=== PATIENT | female | born 1945 | race Caucasian/White ===

== ENCOUNTER 2021-12-22 17:27 | Inpatient (IN) ==
[2021-12-22 19:39] LABS: Bilirubin,Urine Negative (Negative); Blood,Urine Large (Negative); Clarity,Urine Turbid (Clear); Color,Urine Yellow (Yellow); Glucose,Urine (UA) Normal (Normal); Ketones,Urine 20 mg/dL (Negative); Leukocyte Esterase,Urine Moderate (Negative); Mucus,Urine Few per lpf (None-Few); Nitrite,Urine Negative (Negative); Protein,Urine 100 mg/dL (Neg-Trace); RBC,Urine TNTC per hpf (0-3); Specific Gravity,Urine 1.022 (1.010-1.025); Squamous Epithelial Cell,Urine Few per hpf (None-Few); WBC,Urine 50-100 per hpf (0-3)
[2021-12-22] MEDS ORDERED: Ondansetron ODT 4 MG TAB.RAPDIS SL ONE (20:18)
[2021-12-22] MEDS ORDERED: cefTRIAXone 1,000 MG in Water for inj. (sterile) 10 ML IVP ONE (20:18)
[2021-12-22] MEDS ORDERED: 0.9 % Sodium Chloride 1,000 ML IVC ONE (20:18)
[2021-12-22 20:23] LABS: Basophils % 0.2 %; Hematocrit 32.4 % (35.3-44.9); Hemoglobin 10.8 g/dL (11.5-15.4); Immature Granulocytes % 0.8 % (0-4); Lymphocytes # 1.2 K/mcL (0.6-4.6); Lymphocytes % 6.6 %; Mean Corpuscular HGB Conc 33.3 g/dL (31.6-35.5); Mean Corpuscular Hemoglobin 32.5 pg (28.0-33.3); Mean Corpuscular Volume 97.6 fL (83.0-100.0); Mean Platelet Volume 11.8 fL (9.4-12.4); Monocytes # 1.4 K/mcL (0.0-1.3); Monocytes % 7.6 %; Neutrophils # 15.2 K/mcL (1.6-8.9); Platelet Count 170 K/mcL (140-400); Red Blood Count 3.32 M/mcL (3.82-4.97); Red Cell Distribution Width 12.9 % (11.5-14.5); Segmented Neutrophils % 84.8 %; White Blood Count 17.9 K/mcL (4.3-11.1)
[2021-12-22 20:44] LABS: Potassium 3.3 mEq/L (3.5-5.1); Troponin I 0.28 ng/mL (< 0.04)
[2021-12-22] MEDS ORDERED: Iopamidol - 370 500 ML MLS IVP ONE (20:49)
[2021-12-22] MEDS ORDERED: Aspirin 325 MG TABLET PO ONE (20:49)
[2021-12-22] MEDS ORDERED: Morphine Sulfate 2 MG/ML SYRINGE IVP ONE (21:09)
[2021-12-22] MEDS ORDERED: Doxycycline 100 MG CAPSULE PO ONE (21:39)
[2021-12-22] MEDS: Heparin 25,000UNIT/250ML 1/2NS 25,000 UNIT/250 ML IV.SOLN IVC SCH (21:44)
[2021-12-22 21:45] LABS: Adenovirus Not Detected (Not Detect); Bordetella Pertussis Not Detected (Not Detect); Chlamydophila pneumoniae Not Detected (Not Detect); Coronavirus 229E Not Detected (Not Detect); Coronavirus HKU1 Not Detected (Not Detect); Coronavirus NL63 Not Detected (Not Detect); Coronavirus OC43 Not Detected (Not Detect); Human Metapneumovirus Not Detected (Not Detect); Human Rhinovirus/Enterovirus Not Detected (Not Detect); Influenza A Subtype 2009 H1 Not Detected (Not Detect); Influenza B Not Detected (Not Detect); Mycoplasma pneumoniae Not Detected (Not Detect); Parainfluenza Virus 1 Not Detected (Not Detect); Parainfluenza Virus 2 Not Detected (Not Detect); Parainfluenza Virus 3 Not Detected (Not Detect); Parainfluenza Virus 4 Not Detected (Not Detect); Respiratory Syncytial Virus Not Detected (Not Detect); SARS-CoV-2 Not Detected (Not Detect)
[2021-12-22 22:04] LABS: Heparin anti-factor XA UFH < 0.04 IU/mL (0.30-0.70)
[2021-12-22 22:05] LABS: INR 1.4; Prothrombin Time 15.7 Seconds (9.4-12.1)
[2021-12-22] MEDS ORDERED: Ondansetron 4 MG/2 ML VIAL IVP PRN (22:19)
[2021-12-22] MEDS ORDERED: Naloxone 0.4 MG/ML INJ IVP PRN (22:19)
[2021-12-22] MEDS ORDERED: D5% in Water 1,000 ML IVC PRN (23:20)
[2021-12-22] MEDS ORDERED: *HR* Dextrose 50 % in Water (Syg) 50 ML SYRINGE IVP PRN (23:20)
[2021-12-22] MEDS ORDERED: Dextrose Gel 15 GM/37.5 ML TUBE PO PRN ×2 (23:20)
[2021-12-22] MEDS ORDERED: Ringers Solution, Lactated 1,000 ML IVC ONE (23:24)
[2021-12-23] MEDS ORDERED: Ringers Solution, Lactated 1,000 ML IVC SCH (01:00)
[2021-12-23] MEDS: 0.9 % Sodium Chloride 1,000 ML IVC SCH (01:54)
[2021-12-23] MEDS ORDERED: 0.9 % Sodium Chloride 1,000 ML IVC ONE (03:23)
[2021-12-23] MEDS: Nitroglycerin 0.4 MG TAB.SUBL SL PRN ×2 (04:45→04:51)
[2021-12-23 05:27] LABS: Basophils # 0.1 K/mcL (0.0-0.2); Basophils % 0.3 %; Eosinophils % 0.1 %; Hematocrit 31.2 % (35.3-44.9); Hemoglobin 10.3 g/dL (11.5-15.4); Immature Granulocytes % 0.6 % (0-4); Lymphocytes # 1.1 K/mcL (0.6-4.6); Lymphocytes % 6.3 %; Mean Corpuscular Hemoglobin 32.4 pg (28.0-33.3); Mean Corpuscular Volume 98.1 fL (83.0-100.0); Mean Platelet Volume 11.5 fL (9.4-12.4); Monocytes # 1.3 K/mcL (0.0-1.3); Monocytes % 7.3 %; Neutrophils # 14.6 K/mcL (1.6-8.9); Platelet Count 157 K/mcL (140-400); Red Blood Count 3.18 M/mcL (3.82-4.97); Red Cell Distribution Width 13.1 % (11.5-14.5); Segmented Neutrophils % 85.4 %; White Blood Count 17.1 K/mcL (4.3-11.1)
[2021-12-23 05:53] LABS: Estimated Average Glucose 126 mg/dl
[2021-12-23 05:58] LABS: Calcium 8.2 mg/dL (8.6-10.3); Chol/HDL Ratio 3.4 (0-4.9); Magnesium 1.7 mg/dL (1.6-2.6); Phosphorous 2.6 mg/dL (2.7-4.5); Potassium 3.8 mEq/L (3.5-5.1); Troponin I 0.16 ng/mL (< 0.04)
[2021-12-23] MEDS ORDERED: *HR* Heparin 5,000 UNIT/ML VIAL IVP PRN (06:04)
[2021-12-23] MEDS: Aspirin Enteric Coated 81 MG Tablet PO SCH (08:50)
[2021-12-23] MEDS: Azithromycin 250 MG TABLET PO SCH (08:50)
[2021-12-23] MEDS ORDERED: cefTRIAXone 1,000 MG in 0.9 % Sodium Chloride Mini Bag 100 ML IVPB SCH (09:00)
[2021-12-23] MEDS: Acetaminophen 325 MG TABLET PO PRN ×2 (11:47→20:23)
[2021-12-23] MEDS ORDERED: cefTRIAXone 1,000 MG in 0.9 % Sodium Chloride 10 ML IVPB ONE (11:51)
[2021-12-23] MEDS: *HR* Heparin 5,000 UNIT/ML VIAL IVP PRN (18:40)
[2021-12-23] MEDS: Heparin 25,000UNIT/250ML 1/2NS 25,000 UNIT/250 ML IV.SOLN IVC SCH (21:12)
[2021-12-23] MEDS ORDERED: Furosemide 40 MG/4 ML VIAL IVP ONE (23:21)
[2021-12-24 02:49] LABS: Hematocrit 31.6 % (35.3-44.9); Hemoglobin 10.5 g/dL (11.5-15.4); Mean Corpuscular HGB Conc 33.2 g/dL (31.6-35.5); Mean Corpuscular Hemoglobin 32.6 pg (28.0-33.3); Mean Corpuscular Volume 98.1 fL (83.0-100.0); Mean Platelet Volume 12.2 fL (9.4-12.4); Platelet Count 171 K/mcL (140-400); Red Blood Count 3.22 M/mcL (3.82-4.97); Red Cell Distribution Width 13.2 % (11.5-14.5)
[2021-12-24 03:10] LABS: Calcium 8.6 mg/dL (8.6-10.3); Potassium 2.9 mEq/L (3.5-5.1)
[2021-12-24] MEDS: 0.9 % Sodium Chloride 1,000 ML IVC SCH (05:22)
[2021-12-24] MEDS: *HR* Heparin 5,000 UNIT/ML VIAL IVP PRN ×2 (05:31→19:42)
[2021-12-24] MEDS: Azithromycin 250 MG TABLET PO SCH (09:42)
[2021-12-24] MEDS: Losartan/HCTZ 50-12.5 TABLET PO SCH (09:42)
[2021-12-24] MEDS: Aspirin Enteric Coated 81 MG Tablet PO SCH (09:42)
[2021-12-24] MEDS: Acetaminophen 325 MG TABLET PO PRN ×2 (09:45→17:21)
[2021-12-24] MEDS: Heparin 25,000UNIT/250ML 1/2NS 25,000 UNIT/250 ML IV.SOLN IVC SCH (17:22)
[2021-12-24] MEDS: cefTRIAXone 2,000 MG in 0.9 % Sodium Chloride 20 ML IVPB SCH (19:49)
[2021-12-25 01:07] LABS: Hematocrit 28.6 % (35.3-44.9); Hemoglobin 9.7 g/dL (11.5-15.4); Mean Corpuscular HGB Conc 33.9 g/dL (31.6-35.5); Mean Corpuscular Hemoglobin 32.4 pg (28.0-33.3); Mean Corpuscular Volume 95.7 fL (83.0-100.0); Mean Platelet Volume 12.2 fL (9.4-12.4); Platelet Count 162 K/mcL (140-400); Red Blood Count 2.99 M/mcL (3.82-4.97); Red Cell Distribution Width 13.2 % (11.5-14.5)
[2021-12-25 01:26] LABS: Calcium 8.1 mg/dL (8.6-10.3); Potassium 2.9 mEq/L (3.5-5.1)
[2021-12-25] MEDS: Losartan/HCTZ 50-12.5 TABLET PO SCH (09:05)
[2021-12-25] MEDS: Azithromycin 250 MG TABLET PO SCH (09:05)
[2021-12-25] MEDS: Aspirin Enteric Coated 81 MG Tablet PO SCH (09:06)
[2021-12-25] MEDS: Acetaminophen 325 MG TABLET PO PRN (17:20)
[2021-12-25] MEDS: cefTRIAXone 2,000 MG in 0.9 % Sodium Chloride 20 ML IVPB SCH (19:54)
[2021-12-26 05:19] LABS: Hematocrit 26.7 % (35.3-44.9); Hemoglobin 8.7 g/dL (11.5-15.4); Mean Corpuscular HGB Conc 32.6 g/dL (31.6-35.5); Mean Corpuscular Hemoglobin 31.4 pg (28.0-33.3); Mean Corpuscular Volume 96.4 fL (83.0-100.0); Mean Platelet Volume 12.1 fL (9.4-12.4); Platelet Count 216 K/mcL (140-400); Red Blood Count 2.77 M/mcL (3.82-4.97); Red Cell Distribution Width 13.2 % (11.5-14.5); White Blood Count 10.8 K/mcL (4.3-11.1)
[2021-12-26 05:33] LABS: Calcium 8.5 mg/dL (8.6-10.3); Potassium 3.2 mEq/L (3.5-5.1)
[2021-12-26] MEDS: Azithromycin 250 MG TABLET PO SCH (07:19)
[2021-12-26] MEDS: Aspirin Enteric Coated 81 MG Tablet PO SCH (07:19)
[2021-12-26] MEDS: Losartan/HCTZ 50-12.5 TABLET PO SCH (07:20)
[2021-12-26 10:53] VITALS: BP 142/82; PULSE 94; TEMP 98.1; O2SAT 93
== END 2021-12-26 15:15 | disposition home or self-care (01) | DRG 871 ==
LOC: EMEROOARM 17:27 → 2NENU 17:27
PROVIDERS: ADMIT Internal Medicine; ATTEND Internal Medicine